=== PATIENT | female | born 1955 | race Caucasian/White ===

== ENCOUNTER 2025-01-30 15:08 | Inpatient (IN) | payer MEDICARE, SELFPAY ==
[2025-01-30] VITALS (13 sets, daily range): BP systolic 122–167; BP diastolic 77–112; PULSE 74–152; RESP 14–18; TEMP 36.4–37.1; O2SAT 92–100; BMI 26.3; BMI 28.1
--- NOTE | 2025-01-30 15:19 | CT_ITS ---
EXAM: CT BRAIN/HEAD; SINUS/FACIAL BONE; SPINE CERVICAL WITHOUT CONTRAST CLINICAL HISTORY: PAIN; FALL COMPARISON: None. TECHNIQUE: Noncontrast CT images of the head, maxillofacial structures, and cervical spine with multiplanar reconstructions. Dose reduction techniques were used including intermediate exposure control (AEC),iterative reconstruction technique, and/or mA and/or KV dose adjustments based on patient's size. FINDINGS: HEAD/FACE: No acute intracranial hemorrhage, extra-axial collection, mass effect or evidence of acute infarct. Mild-moderate generalized brain parenchymal volume loss and chronic microangiopathic changes. No acute skull base, calvarial, or maxillofacial bone fracture. Moderate subcutaneous hematoma and contusional changes in the left facial soft tissues overlying the zygoma. The globes appear intact, with absent [place] ocular lenses. No intraorbital hematoma or emphysema. Well-aerated paranasal sinuses and bilateral mastoid air cells. CERVICAL SPINE: No acute fracture or subluxation. Trace degenerative grade 1 anterolisthesis of C3 on C4. Straightening and slight reversal of the normal cervical lordosis. Moderate multilevel spondylotic changes with varying degrees of disc space narrowing, endplate sclerosis, subchondral cysts and Schmorl's node formations, endplate osteophytosis and uncovertebral spurring, and hypertrophic facet arthropathy. No prevertebral soft tissue swelling. Atherosclerotic vascular calcifications. CT/Spine Cervical without Contras IMPRESSION: 1. No acute intracranial abnormality. 2. Mild-moderate volume loss and chronic microangiopathic changes. 3. No acute maxillofacial fracture. Moderate left facial subcutaneous hematoma /contusional changes overlying the left zygoma. 4. No acute cervical spine fracture or traumatic malalignment. Reading Location: [id number]
--- NOTE | 2025-01-30 15:19 | CT_ITS ---
EXAM: CT BRAIN/HEAD; SINUS/FACIAL BONE; SPINE CERVICAL WITHOUT CONTRAST CLINICAL HISTORY: PAIN; FALL COMPARISON: None. TECHNIQUE: Noncontrast CT images of the head, maxillofacial structures, and cervical spine with multiplanar reconstructions. Dose reduction techniques were used including intermediate exposure control (AEC),iterative reconstruction technique, and/or mA and/or KV dose adjustments based on patient's size. FINDINGS: HEAD/FACE: No acute intracranial hemorrhage, extra-axial collection, mass effect or evidence of acute infarct. Mild-moderate generalized brain parenchymal volume loss and chronic microangiopathic changes. No acute skull base, calvarial, or maxillofacial bone fracture. Moderate subcutaneous hematoma and contusional changes in the left facial soft tissues overlying the zygoma. The globes appear intact, with absent [place] ocular lenses. No intraorbital hematoma or emphysema. Well-aerated paranasal sinuses and bilateral mastoid air cells. CERVICAL SPINE: No acute fracture or subluxation. Trace degenerative grade 1 anterolisthesis of C3 on C4. Straightening and slight reversal of the normal cervical lordosis. Moderate multilevel spondylotic changes with varying degrees of disc space narrowing, endplate sclerosis, subchondral cysts and Schmorl's node formations, endplate osteophytosis and uncovertebral spurring, and hypertrophic facet arthropathy. No prevertebral soft tissue swelling. Atherosclerotic vascular calcifications. CT/Sinus/Facial Bone IMPRESSION: 1. No acute intracranial abnormality. 2. Mild-moderate volume loss and chronic microangiopathic changes. 3. No acute maxillofacial fracture. Moderate left facial subcutaneous hematoma /contusional changes overlying the left zygoma. 4. No acute cervical spine fracture or traumatic malalignment. Reading Location: [id number]
--- NOTE | 2025-01-30 15:19 | CT_ITS ---
EXAM: CT BRAIN/HEAD; SINUS/FACIAL BONE; SPINE CERVICAL WITHOUT CONTRAST CLINICAL HISTORY: PAIN; FALL COMPARISON: None. TECHNIQUE: Noncontrast CT images of the head, maxillofacial structures, and cervical spine with multiplanar reconstructions. Dose reduction techniques were used including intermediate exposure control (AEC),iterative reconstruction technique, and/or mA and/or KV dose adjustments based on patient's size. FINDINGS: HEAD/FACE: No acute intracranial hemorrhage, extra-axial collection, mass effect or evidence of acute infarct. Mild-moderate generalized brain parenchymal volume loss and chronic microangiopathic changes. No acute skull base, calvarial, or maxillofacial bone fracture. Moderate subcutaneous hematoma and contusional changes in the left facial soft tissues overlying the zygoma. The globes appear intact, with absent [place] ocular lenses. No intraorbital hematoma or emphysema. Well-aerated paranasal sinuses and bilateral mastoid air cells. CERVICAL SPINE: No acute fracture or subluxation. Trace degenerative grade 1 anterolisthesis of C3 on C4. Straightening and slight reversal of the normal cervical lordosis. Moderate multilevel spondylotic changes with varying degrees of disc space narrowing, endplate sclerosis, subchondral cysts and Schmorl's node formations, endplate osteophytosis and uncovertebral spurring, and hypertrophic facet arthropathy. No prevertebral soft tissue swelling. Atherosclerotic vascular calcifications. CT/Brain/Head without Contrast IMPRESSION: 1. No acute intracranial abnormality. 2. Mild-moderate volume loss and chronic microangiopathic changes. 3. No acute maxillofacial fracture. Moderate left facial subcutaneous hematoma /contusional changes overlying the left zygoma. 4. No acute cervical spine fracture or traumatic malalignment. Reading Location: [id number]
--- NOTE | 2025-01-30 15:20 | EKG12_ITS ---
Test Reason : ALT LOC Blood Pressure : */* mmHG Vent. Rate : 136 BPM Atrial Rate : * BPM P-R Int : * ms QRS Dur : 98 ms QT Int : 302 ms P-R-T Axes : * 32 250 degrees QTcB Int : 454 ms Atrial fibrillation with rapid ventricular response Incomplete right bundle branch block Nonspecific ST and T wave abnormality Abnormal ECG Confirmed by GEMINI MONROY, ANGIE ([id number]), acquisitions editor TORIBIO SILVA ([id number]) on 02/02/2025 9:17:54 AM Referred By: ER Confirmed By: ANGIE SINGLETARY MD
[2025-01-30] MEDS: 0.9% Normal Saline (1000mL) 1,000 ML 999 ML IV ×2 (15:27→17:21)
--- NOTE | 2025-01-30 15:28 | EDS_ITS ---
HPI <TREVOR Kahn - Last Filed: 01/30/25 20:29> History of Present Illness Chief Complaint: Alt LOC Narrative Narrative: 69-year-old female with past medical history of tachycardia, frequent alcohol use was brought in via EMS with altered mental status. Her is not the best informant. He states she had 2 bottles of wine last night. He went to bed and then was told by the brother who visited this morning that she had signs of facial injury. She is sleepy and seems confused. She could not walk due to right ankle pain. She is not on blood thinners. PFS <TREVOR Kahn - Last Filed: 01/30/25 20:29> [facility] Medical History Alcohol abuse Depression Anxiety Fibromyalgia Hypertension Asthma Home Medications ?Medication ?Instructions ?Recorded ?Last Taken ?Type albuterol sulfate 2.5 mg/3 mL 2.[address] N PRN 01/30/25 Unknown History (0.083 %) solution for nebulization wheezing albuterol sulfate 90 mcg/actuation 1 puff inhalation Q 4H PRN PRN 01/30/25 Unknown History aerosol inhaler asthma amitriptyline 10 mg tablet 10 mg PO TID 01/30/2501/29 History amlodipine 10 mg tablet 10 mg PO DAILY 01/30/2501/16 History atorvastatin 40 mg tablet 40 mg PO DAILY 01/30/2501/16 History baclofen 20 mg tablet 20 mg PO TID spasm 01/30/25 Unknown History diltiazem HCl 240 mg capsule,24 240 mg PO DAILY heart 01/30/25 01/29/25 History hr,extended release (Tiadylt ER) fluticasone 250 mcg-salmeterol 50 1 inh inhalation BID 01/30/25 Unknown History mcg/dose blistr powdr for inhalation (Advair Diskus) sertraline 100 mg tablet 100 mg PO DAILY 01/30/25 History solifenacin 5 mg tablet 5 mg PO DAILY 01/30/2501/29 History sulfamethoxazole 800 1 tab PO BID atb 01/30/25 Un known History mg-trimethoprim 160 mg tablet Allergy/AdvReac Type Severity Reaction Status Date / Time nitrofurantoin (From Allergy Hives Verified 01/30/25 18:20 Macrobid) ipratropium (From Atrovent) AdvReac tachycardia Verified 01/30/25 18:20 Surgical History Hx of appendectomy Hx of knee surgery Hx of foot surgery Social History Smoking Status: Never smoker ROS <TREVOR Kahn - Last Filed: 01/30/25 20:29> ROS ED ROS Narrative Unable to obtain due to altered mental EXAM <TREVOR Kahn - Last Filed: 01/30/25 20:29> Physical Exam Narrative Exam Narrative: CONST: Patient sitting in bed with her eyes closed in no distress. EYES: PERRL. HEAD: Left periorbital and cheek bruising and swelling. NECK: Normal inspection. RESP: No respiratory distress, CTAB. CVS: Tachycardic with regular rhythm, no murmur, no gallop. ABD: Soft and nontender, no guarding or rebound, nondistended. SKIN: Color normal, no rash, warm, dry, intact. EXTREMITIES: Normal appearance, no pedal edema. NEURO: Opens eyes to sternal rub, tells me her name is Alondra and that she is at the hospital, does not answer other questions or follow commands. PSYCH: Normal affect. Const Vital Signs: 01/30/25 15:09 01/30/25 16:00 01/30/25 17:08 Temperature 97.6 F L Temperature Source Axillary Pulse Rate 140 H 152 H 145 H Respiratory Rate 17 14 14 Blood Pressure 135/102 H 148/112 H 153/110 H Blood Pressure Mean 113 124 124 Pulse Ox 97 97 96 Oxygen Delivery Method Room Air Room Air Room Air 01/30/25 17:30 01/30/25 17:45 01/30/25 17:59 Temperature 98 F Temperature Source Pulse Rate 74 85 74 Respiratory Rate 16 14 18 Blood Pressure 140/92 H 153/101 H 153/101 H Blood Pressure Mean 107 118 118 Pulse Ox 98 99 99 Oxygen Delivery Method 01/30/25 18:35 01/30/25 19:00 01/30/25 19:30 Temperature Temperature Source Pulse Rate 86 85 77 Respiratory Rate 16 16 16 Blood Pressure 149/106 H 158/85 H 122/77 H Blood Pressure Mean 120 109 92 Pulse Ox 92 99 95 Oxygen Delivery Method Room Air Room Air Room Air 01/30/25 20:00 01/30/25 20:30 Temperature Temperature Source Pulse Rate 92 82 Respiratory Rate 18 18 Blood Pressure 142/92 H 151/96 H Blood Pressure Mean 108 114 Pulse Ox 94 95 Oxygen Delivery Method Room Air Room Air <Dr. Britney Olivares MD - Last Filed: 01/31/25 00:45> Physical Exam Const Vital Signs: 01/30/25 15:09 01/30/25 16:00 01/30/25 17:08 Temperature 97.6 F L Temperature Source Axillary Pulse Rate 140 H 152 H 145 H Respiratory Rate 17 14 14 Blood Pressure 135/102 H 148/112 H 153/110 H Blood Pressure Mean 113 124 124 Pulse Ox 97 97 96 Oxygen Delivery Method Room Air Room Air Room Air 01/30/25 17:30 01/30/25 17:45 01/30/25 17:59 Temperature 98 F Temperature Source Pulse Rate 74 85 74 Respiratory Rate 16 14 18 Blood Pressure 140/92 H 153/101 H 153/101 H Blood Pressure Mean 107 118 118 Pulse Ox 98 99 99 Oxygen Delivery Method 01/30/25 18:35 01/30/25 19:00 01/30/25 19:30 Temperature Temperature Source Pulse Rate 86 85 77 Respiratory Rate 16 16 16 Blood Pressure 149/106 H 158/85 H 122/77 H Blood Pressure Mean 120 109 92 Pulse Ox 92 99 95 Oxygen Delivery Method Room Air Room Air Room Air 01/30/25 20:00 01/30/25 20:30 Temperature Temperature Source Pulse Rate 92 82 Respiratory Rate 18 18 Blood Pressure 142/92 H 151/96 H Blood Pressure Mean 108 114 Pulse Ox 94 95 Oxygen Delivery Method Room Air Room Air MDM <TREVOR Kahn - Last Filed: 01/30/25 20:29> [facility] MDM Narrative Medical decision making narrative: Wide differential includes intracranial hemorrhage, alcohol or drug ingestion, electrolyte derangement, UTI 69-year-old female presents with altered mental status. Her provides history. They are from [place] here visiting family. She reportedly drinks alcohol frequently and had 2 bottles of wine last night and this morning they saw she had signs of facial trauma and she was confused. She is snoring in bed with her eyes closed and responds to a deep sternal rub. She tells me her name and location is the hospital and then goes back to sleep. BP 135/102, HR 140, 97% on room air, RR 17, afebrile. The left side of the face has a traumatic hematoma. There are no other injuries noted except for right ankle swelling and bruising. She is tachycardic without murmur and has clear lung sounds. Abdomen soft and nontender. Distal pulses intact. CT scans of the head/neck/facial bones are negative for acute findings. CBC is unremarkable. Sodium is 147, glucose 125, CO2 24, gap 17. Renal function is normal. Alcohol level is negative. Urine tox is positive for THC. EKG shows atrial fibrillation with RVR at 136 bpm and troponin is normal. Her states she has had SVT in the past but no known A-fib and she is on blood thinners. After IV fluids her heart rate is now in the 70s. Her urinalysis is negative. VBG shows normal pH at 7.444 and CO2 of 41.4. Chest x-ray and pelvis show no acute findings. There is a right spiral distal fibula fracture so I placed a short leg posterior and stir rup splint and she is neurovascularly intact after application. The source of her altered mental status is not clear. The nurse came in and reported she had vomited so I ordered Zofran and a CT scan of her abdomen/pelvis which returned with no acute findings. I consulted the hospitalist for admission for altered mental status of unknown etiology. After the hospitalist evaluated the mentioned that the patient had taken baclofen due to her right ankle pain so this could be contributing. She has been protecting her airway, stable on room air and does not require intervention. She was admitted in stable condition. History & Record Review Discussion w/independent historian: Significant other Additional record(s) reviewed:: No prior records Lab Data Attestation: I reviewed the patient's lab results. Labs: Laboratory Results - last 24 hr 01/30/25 01/30/25 01/30/25 15:23 15:39 16:35 WBC 10.3 RBC 4.40 Hgb 13.7 Hct 41.3 MCV 93.9 MCH 31.1 MCHC 33.2 RDW Std Deviation 42.6 RDW Coeff of Joaquín 12.2 Plt Count 276 MPV 10.2 Immature Gran % (Auto) 0.300 Neut % (Auto) 75.7 H Lymph % (Auto) 16.8 L [place] % (Auto) 6.4 Eos % (Auto) 0.3 Baso % (Auto) 0.5 Absolute Neuts (auto) 7.8 H Absolute Lymphs (auto) 1.72 Nucleated RBC % 0 Sodium 147 H Potassium 3.7 Chloride 106 Carbon Dioxide 24.0 Anion Gap 17 H BUN 14 Creatinine 0.56 L Estim Creat Clear Calc 75.17 Est GFR (MDRD) Non-Af 100 BUN/Creatinine Ratio 23.9 H Glucose 125 H Calcium 10.3 Total Bilirubin 0.32 AST 28 ALT 27 Alkaline Phosphatase 68 Troponin T High Sens Troponin T Hi Sens 2 Hr Troponin T Hi Sens 4Hr Total Protein 8.1 Albumin 5.2 H Globulin 2.9 Albumin/Globulin Ratio 1.8 Urine Color Yellow Urine Clarity Clear Urine pH 6.5 Ur Specific Sherman 1.015 Urine Protein 15 H Urine Glucose (UA) Normal Urine Ketones Negative Urine Occult Blood Negative Urine Nitrite Negative Urine Bilirubin Negative Urine Urobilinogen Normal Ur Leukocyte Esterase Negative Urine RBC 0 SEEN Urine WBC 0 SEEN Ur Squamous Epith Cells 0 SEEN Urine Bacteria 0 SEEN Urine Mucus 0 SEEN Urine Opiates Screen NEGATIVE U Buprenorphine Qual NEGATIVE Ur Oxycodone Screen NEGATIVE Urine Methadone Screen NEGATIVE Urine Fentanyl Screen NEGATIVE Ur Barbiturates Screen NEGATIVE Ur Phencyclidine Scrn NEGATIVE Ur Amphetamines Screen NEGATIVE U Benzodiazepines Scrn NEGATIVE Urine Cocaine Screen NEGATIVE U Cannabinoids Screen PRESUMPTIVE POSITIVE Ethyl Alcohol < 10.1 POC Glucose 118 H 01/30/25 01/30/25 01/30/25 16:43 17:55 19:54 WBC RBC Hgb Hct MCV MCH MCHC RDW Std Deviation RDW Coeff of Joaquín Plt Count MPV Immature Gran % (Auto) Neut % (Auto) Lymph % (Auto) [place] % (Auto) Eos % (Auto) Baso % (Auto) Absolute Neuts (auto) Absolute Lymphs (auto) Nucleated RBC % Sodium Potassium Chloride Carbon Dioxide Anion Gap BUN Creatinine Estim Creat Clear Calc Est GFR (MDRD) Non-Af BUN/Creatinine Ratio Glucose Calcium Total Bilirubin AST ALT Alkaline Phosphatase Troponin T High Sens < 6 Troponin T Hi Sens 2 Hr 8 Troponin T Hi Sens 4Hr 11 Total Protein Albumin Globulin Albumin/Globulin Ratio Urine Color Urine Clarity Urine pH Ur Specific Sherman Urine Protein Urine Glucose (UA) Urine Ketones Urine Occult Blood Urine Nitrite Urine Bilirubin Urine Urobilinogen Ur Leukocyte Esterase Urine RBC Urine WBC Ur Squamous Epith Cells Urine Bacteria Urine Mucus Urine Opiates Screen U Buprenorphine Qual Ur Oxycodone Screen Urine Methadone Screen Urine Fentanyl Screen Ur Barbiturates Screen Ur Phencyclidine Scrn Ur Amphetamines Screen U Benzodiazepines Scrn Urine Cocaine Screen U Cannabinoids Screen Ethyl Alcohol POC Glucose ABG Data ABG results: ABG 01/30/25 15:44 Specimen Type ART Sample Site L Radial pH 7.44 Bicarbonate Actual 28.3 H Total CO2 30 Base Excess 4 H O2 Saturation 97 O2 % 21.0 ABG pCO2 41.4 ABG pO2 86 Dc Test Positive O2 Delivery Device Room Air Vent Mode Not entered Radiography Diagnostic Testing: Clinical Impression(s) from Imaging Studies Brain CT 01/30/25 15:19 IMPRESSION: 1. No acute intracranial abnormality. 2. Mild-moderate volume loss and chronic microangiopathic changes. 3. No acute maxillofacial fracture. Moderate left facial subcutaneous hematoma/contusional changes overlying the left zygoma. 4. No acute cervical spine fracture or traumatic malalignment. Reading Location: [facility] Cervical Spine CT 01/30/25 15:19 IMPRESSION: 1. No acute intracranial abnormality. 2. Mild-moderate volume loss and chronic microangiopathic changes. 3. No acute maxillofacial fracture. Moderate left facial subcutaneous hematoma/contusional changes overlying the left zygoma. 4. No acute cervical spine fracture or traumatic malalignment. Reading Location: [facility] Facial/Sinus 01/30/25 15:19 IMPRESSION: 1. No acute intracranial abnormality. 2. Mild-moderate volume loss and chronic microangiopathic changes. 3. No acute maxillofacial fracture. Moderate left facial subcutaneous hematoma/contusional changes overlying the left zygoma. 4. No acute cervical spine fracture or traumatic malalignment. Reading Location: [facility] Ankle X-Ray 01/30/25 16:00 IMPRESSION: Spiral mildly displaced fracture deformity of distal fibular metadiaphysis. Reading Location: [facility] Chest X-Ray 01/30/25 16:00 IMPRESSION: No acute cardiopulmonary abnormalities are visualized. Reading Location: [facility] Pelvis X-Ray 01/30/25 16:00 IMPRESSION: Limited evaluation of left hip joint due to patient rotation. No definite evidence of displaced fracture deformity. If there is high clinical suspicion for fracture deformity, cross-sectional imaging can be obtained. Reading Location: [facility] Abdomen/Pelvis CT 01/30/25 18:30 IMPRESSION: 1. No acute findings in the abdomen or pelvis. 2. Mild diffuse hepatic steatosis. 3. Calcified uterine fibroid. Reading Location: [facility] ED attending interpretation of 1 view chest x-ray shows normal heart size, no acute infiltrate. ED attending interpretation, 1 view pelvis shows fracture or dislocation. ED attending interpretation of the right ankle shows a Bianchi B distal fibula fracture. EKG Initial EKG: Attestation: I personally reviewed and interpreted this EKG as follows: Interpretation: Atrial Fibrillation Comments: A-fib RVR at 136 bpm Incomplete right bundle branch block No STEMI Prior EKG tracings: not available for review <Dr. Britney Olivares MD - Last Filed: 01/31/25 00:45> [facility] MDM Narrative Medical decision making narrative: Wide differential includes intracranial hemorrhage, alcohol or drug ingestion, electrolyte derangement, UTI 69-year-old female presents with altered mental status. Her provides history. They are from [place] here visiting family. She reportedly drinks alcohol frequently and had 2 bottles of wine last night and this morning they saw she had signs of facial trauma and she was confused. She is snoring in bed with her eyes closed and responds to a deep sternal rub. She tells me her name and location is the hospital and then goes back to sleep. BP 135/102, HR 140, 97% on room air, RR 17, afebrile. The left side of the face has a traumatic hematoma. There are no other injuries noted except for right ankle swelling and bruising. She is tachycardic without murmur and has clear lung sounds. Abdomen soft and nontender. Distal pulses intact. CT scans of the head/neck/facial bones are negative for acute findings. CBC is unremarkable. Sodium is 147, glucose 125, CO2 24, gap 17. Renal function is normal. Alcohol level is negative. Urine tox is positive for THC. EKG shows atrial fibrillation with RVR at 136 bpm and troponin is normal. Her states she has had SVT in the past but no known A-fib and she is on blood thinners. After IV fluids her heart rate is now in the 70s. Her urinalysis is negative. VBG shows normal pH at 7.444 and CO2 of 41.4. Chest x-ray and pelvis show no acute findings. There is a right spiral distal fibula fracture so I placed a short leg posterior and stirrup splint and she is neurovascularly intact after application. The source of her altered mental status is not clear. The nurse came in and reported she had vomited so I ordered Zofran and a CT scan of her abdomen/pelvis which returned with no acute findings. I consulted the hospitalist for admission for altered mental status of unknown etiology. After the hospitalist evaluated the mentioned that the patient had taken baclofen due to her right ankle pain so this could be contributing. She has been protecting her airway, stable on room air and does not require intervention. She was admitted in stable condition. Patient seen and evaluated with KAYLYNN. I personally interviewed and examined the patient. I was involved in all aspects of patient's orders, interpretation of results, and treatment. Agree with the above. When I evaluated the patient she was difficult to arouse. I was concerned about her protecting her airway. While prepping to intubate, urinary catheter was placed by nursing staff and the patient woke. She was alert and oriented x 2. She was able to follow my commands by squeezing my hands and giving thumbs up. [id number] glucose was ordered and was within normal limits. ABG ordered and shows no significant abnormalities. Taken to CT and I do not see any intracranial bleeds on my read. Please see above however overall her workup was negative. Heart rate improved after fluid bolus. She was found to have a distal fibular fracture Bianchi type B, placed in a short leg posterior and stirrup splint. She was neurovascularly intact after splint placement by KAYLYNN. Patient will require admission for altered mental status. Admitted to the hospitalist for further management. Clinical impression Altered mental status A-fib with RVR Distal fibular fracture Lab Data Labs: Laboratory Results - last 24 hr 01/30/25 01/30/25 01/30/25 15:23 15:39 16:35 WBC 10.3 RBC 4.40 Hgb 13.7 Hct 41.3 MCV 93.9 MCH 31.1 MCHC 33.2 RDW Std Deviation 42.6 RDW Coeff of Joaquín 12.2 Plt Count 276 MPV 10.2 Immature Gran % (Auto) 0.300 Neut % (Auto) 75.7 H Lymph % (Auto) 16.8 L [place] % (Auto) 6.4 Eos % (Auto) 0.3 Baso % (Auto) 0.5 Absolute Neuts (auto) 7.8 H Absolute Lymphs (auto) 1.72 Nucleated RBC % 0 Sodium 147 H Potassium 3.7 Chloride 106 Carbon Dioxide 24.0 Anion Gap 17 H BUN 14 Creatinine 0.56 L Estim Creat Clear Calc 75.17 Est GFR (MDRD) Non-Af 100 BUN/Creatinine Ratio 23.9 H Glucose 125 H Calcium 10.3 Total Bilirubin 0.32 AST 28 ALT 27 Alkaline Phosphatase 68 Troponin T High Sens Troponin T Hi Sens 2 Hr Troponin T Hi Sens 4Hr Total Protein 8.1 Albumin 5.2 H Globulin 2.9 Albumin/Globulin Ratio 1.8 Urine Color Yellow Urine Clarity Clear Urine pH 6.5 Ur Specific Sherman 1.015 Urine Protein 15 H Urine Glucose (UA) Normal Urine Ketones Negative Urine Occult Blood Negative Urine Nitrite Negative Urine Bilirubin Negative Urine Urobilinogen Normal Ur Leukocyte Esterase Negative Urine RBC 0 SEEN Urine WBC 0 SEEN Ur Squamous Epith Cells 0 SEEN Urine Bacteria 0 SEEN Urine Mucus 0 SEEN Urine Opiates Screen NEGATIVE U Buprenorphine Qual NEGATIVE Ur Oxycodone Screen NEGATIVE Urine Methadone Screen NEGATIVE Urine Fentanyl Screen NEGATIVE Ur Barbiturates Screen NEGATIVE Ur Phencyclidine Scrn NEGATIVE Ur Amphetamines Screen NEGATIVE U Benzodiazepines Scrn NEGATIVE Urine Cocaine Screen NEGATIVE U Cannabinoids Screen PRESUMPTIVE POSITIVE Ethyl Alcohol < 10.1 POC Glucose 118 H 01/30/25 01/30/25 01/30/25 16:43 17:55 19:54 WBC RBC Hgb Hct MCV MCH MCHC RDW Std Deviation RDW Coeff of Joaquín Plt Count MPV Immature Gran % (Auto) Neut % (Auto) Lymph % (Auto) [place] % (Auto) Eos % (Auto) Baso % (Auto) Absolute Neuts (auto) Absolute Lymphs (auto) Nucleated RBC % Sodium Potassium Chloride Carbon Dioxide Anion Gap BUN Creatinine Estim Creat Clear Calc Est GFR (MDRD) Non-Af BUN/Creatinine Ratio Glucose Calcium Total Bilirubin AST ALT Alkaline Phosphatase Troponin T High Sens < 6 Troponin T Hi Sens 2 Hr 8 Troponin T Hi Sens 4Hr 11 Total Protein Albumin Globulin Albumin/Globulin Ratio Urine Color Urine Clarity Urine pH Ur Specific Sherman Urine Protein Urine Glucose (UA) Urine Ketones Urine Occult Blood Urine Nitrite Urine Bilirubin Urine Urobilinogen Ur Leukocyte Esterase Urine RBC Urine WBC Ur Squamous Epith Cells Urine Bacteria Urine Mucus Urine Opiates Screen U Buprenorphine Qual Ur Oxycodone Screen Urine Methadone Screen Urine Fentanyl Screen Ur Barbiturates Screen Ur Phencyclidine Scrn Ur Amphetamines Screen U Benzodiazepines Scrn Urine Cocaine Screen U Cannabinoids Screen Ethyl Alcohol POC Glucose ABG Data ABG results: ABG 01/30/25 15:44 Specimen Type ART Sample Site L Radial pH 7.44 Bicarbonate Actual 28.3 H Total CO2 30 Base Excess 4 H O2 Saturation 97 O2 % 21.0 ABG pCO2 41.4 ABG pO2 86 Dc Test Positive O2 Delivery Device Room Air Vent Mode Not entered Radiography Diagnostic Testing: Clinical Impression(s) from Imaging Studies Brain CT 01/30/25 15:19 IMPRESSION: 1. No acute intracranial abnormality. 2. Mild-moderate volume loss and chronic microangiopathic changes. 3. No acute maxillofacial fracture. Moderate left facial subcutaneous hematoma/contusional changes overlying the left zygoma. 4. No acute cervical spine fracture or traumatic malalignment. Reading Location: [id number] Cervical Spine CT 01/30/25 15:19 IMPRESSION: 1. No acute intracranial abnormality. 2. Mild-moderate volume loss and chronic microangiopathic changes. 3. No acute maxillofacial fracture. Moderate left facial subcutaneous hematoma/contusional changes overlying the left zygoma. 4. No acute cervical spine fracture or traumatic malalignment. Reading Location: [facility] Facial/Sinus 01/30/25 15:19 IMPRESSION: 1. No acute intracranial abnormality. 2. Mild-moderate volume loss and chronic microangiopathic changes. 3. No acute maxillofacial fracture. Moderate left facial subcutaneous hematoma /contusional changes overlying the left zygoma. 4. No acute cervical spine fracture or traumatic malalignment. Reading Location: [facility] Ankle X-Ray 01/30/25 16:00 IMPRESSION: Spiral mildly displaced fracture deformity of distal fibular metadiaphysis. Reading Location: [facility] Chest X-Ray 01/30/25 16:00 IMPRESSION: No acute cardiopulmonary abnormalities are visualized. Reading Location: [facility] Pelvis X-Ray 01/30/25 16:00 IMPRESSION: Limited evaluation of left hip joint due to patient rotation. No definite evidence of displaced fracture deformity. If there is high clinical suspicion for fracture deformity, cross-sectional imaging can be obtained. Reading Location: [facility] Abdomen/Pelvis CT 01/30/25 18:30 IMPRESSION: 1. No acute findings in the abdomen or pelvis. 2. Mild diffuse hepatic steatosis. 3. Calcified uterine fibroid. Reading [facility] Discharge Plan Triage Chief Complaint: Alt LOC ED Midlevel Provider: Barb Bah ED Provider: Britney Olivares Dx/Rx/DC Orders Clinical Impression: Altered mental status, Atrial fibrillation with RVR, Facial hematoma, Alcohol abuse, Closed fracture of right distal fibula Primary Care Provider: Care Physician,No Primary Disposition Disposition: Home, Self Care Discharge Date/Time: 01/30/25 20:50
[2025-01-30 15:37] LABS: Hematocrit 41.3 % (37-47); Hemoglobin 13.7 g/dL (12.0-15.0); Immature Granulocytes Count 0.030 X10^3/uL (0.0-0.0); Mean Corp Hgb Conc 33.2 g/dL (32-36); Mean Corpuscular Volume 93.9 fL (81-99); Mean Platelet Vol. 10.2 fl (6.2-12.0); NRBC Flagged by Analyzer 0 % (0-5); Platelet Count 276 K/mm3 (150-450); RBC Distribution Width CV 12.2 % (11.6-14.6); RBC Distribution Width SD 42.6 fl (35.1-43.9); Red Blood Count 4.40 M/mm3 (4.2-5.4); White Blood Count 10.3 K/mm3 (4.4-11.0)
[2025-01-30 15:50] LABS: Allen Test Positive; Base Excess 4 mmol/L (-2 to +2); FI02 21.0; PO2 86 mmHG (75-100); SITE L Radial; SO2 97 % (95-99)
--- NOTE | 2025-01-30 16:00 | RAD_ITS ---
PROCEDURE: CHEST 1 VIEW (PORTABLE) 01/30/2025 REASON FOR EXAM: FALL TECHNIQUE: Frontal view of the chest. COMPARISON: None FINDINGS: Heart: Heart size is moderately enlarged. Lungs: Bibasilar atelectasis. Bones: Degenerative changes are identified within the thoracic spine. Other: None RAD/Chest 1 View (Portable) IMPRESSION: No acute cardiopulmonary abnormalities are visualized. Reading Location: [id number]
--- NOTE | 2025-01-30 16:00 | RAD_ITS ---
PROCEDURE: ANKLE MIN 3 VIEWS 01/30/2025 REASON FOR EXAM: PAIN TECHNIQUE: ANKLE MIN 3 VIEWS Laterality: FINDINGS: Bones: Spiral mildly displaced fracture deformity of distal fibula. Calcaneal spur is visualized. Joints: Degenerative changes of visualized ankle joint. Soft tissues: Soft tissue swelling overlying fracture deformity. RAD/Ankle min 3 Views IMPRESSION: Spiral mildly displaced fracture deformity of distal fibular metadiaphysis. Reading Location: [id number]
--- NOTE | 2025-01-30 16:00 | RAD_ITS ---
PROCEDURE: PELVIS 1 OR 2 VIEWS 01/30/2025 REASON FOR EXAM: FALL TECHNIQUE: PELVIS 1 OR 2 VIEWS COMPARISON: None FINDINGS: Bones: Unremarkable no displaced acute fracture deformity. Joints: Limited evaluation of left hip joint due to patient rotation. No fracture deformity of right hip joint. soft tissues: Soft tissue are unremarkable. Other: Moderate stool burden. RAD/Pelvis 1 or 2 Views IMPRESSION: Limited evaluation of left hip joint due to patient rotation. No definite evid ence of displaced fracture deformity. If there is high clinical suspicion for fracture deformity, cross-sectional raj ging can be obtained. Reading Location: [id number]
[2025-01-30 16:04] LABS: AST(SGOT) 28 U/L (<=31); Alanine Aminotransfer ALT/SGPT 27 U/L (<=34); Albumin, Serum 5.2 g/dL (3.4-4.8); Alcohol, Blood (Medical)-Serum < 10.1 mg/dL (<=10.0); Alkaline Phosphatase 68 U/L (35-104); Anion Gap 17 (5-15); BUN 14 mg/dL (4-19); BUN/Creat Ratio 23.9 RATIO (10-20); Calcium,Total 10.3 mg/dL (7.6-11.0); Carbon Dioxide 24.0 mmol/L (21.0-32.0); Chloride 106 mmol/L (98-108); Estimated Creatinine Clearance 75.17 ml/min (50-250); Globulin 2.9 g/dL (2.2-4.2); Glucose 125 mg/dL (70-99); Potassium 3.7 mmol/L (3.3-5.1)
[2025-01-30 16:45] LABS: Mucous, Urine 0 SEEN /hpf (<or=2+); Red Blood Cells-Urine 0 SEEN /hpf (0-5); Squamous Epithelial Cells - UA 0 SEEN /hpf (5-10)
[2025-01-30 17:13] LABS: Barbiturate Urine NEGATIVE (< 200 ng/mL); Benzodiazepine Urine NEGATIVE (< 200 ng/mL); PCP Urine NEGATIVE (< 25 ng/mL); THC Urine PRESUMPTIVE POSITIVE (< 50 ng/mL)
[2025-01-30 17:16] LABS: Color, Urine Yellow (Yellow); Glucose, Dipstick Normal (Normal); Ketone-Dipstick Negative (Negative); Leukocyte Esterase-Dipstick Negative /ul (Negative); Nitrite-Dipstick Negative (Negative); Occult Blood-Urine Negative /ul (Negative); Protein-Dipstick 15 mg/dl (Negative); Specific Gravity, Urine 1.015 (1.002-1.030); Urine Bilirubin Dipstick Negative (Negative)
[2025-01-30 17:24] LABS: Troponin T High Sensitivity < 6 ng/L (<=14)
--- NOTE | 2025-01-30 17:40 | CM.ED ---
Social work SW entered patient's room, introducing self and role at [facility]. Patient's , Shakeel, was bedside. Patient was sitting up in bed and was awake, but confused. Shakeel stated patient had been sleeping much of the day, but Shakeel stated patient was repeating I'm sorry since being awake. Shakeel stated patient was unaware of where patient was or what had occurred last evening. Patient is from [place]; per Shakeel, patient and Shakeel drove in yesterday to visit with family. Sapphire Mar, TOP TAPER MACHINE, FUNERAL HOME DIRECTOR
--- NOTE | 2025-01-30 18:30 | CT_ITS ---
PROCEDURE: ABDOMEN/PELVIS W IV CONT ONLY 01/30/2025 REASON FOR EXAM: VOMITING, CONFUSION TECHNIQUE: ABDOMEN/PELVIS W IV CONT ONLY Coronal and Sagittal reconstruction series were provided. CONTRAST: 100 cc of Isovue 370 intravenous contrast. One or more dose reduction techniques were used (e.g., Automated exposure control, adjustment of the mA and/or kV according to patient size, use of iterative reconstruction technique. COMPARISON: None available. FINDINGS: Lung bases: Unremarkable. Liver: Normal-size. Mild diffuse hepatic steatosis. No obvious hepatic mass. Gallbladder: Unremarkable. No biliary ductal dilatation. Spleen: Normal size. Pancreas: Normal size without evidence of mass surrounding inflammation or ductal dilation. Adrenals: Unremarkable Kidneys: Normal renal sizes. No hydronephrosis. Bladder: Collapsed around a Prater catheter. Reproductive Organs: Normal uterine size and contour. Ovaries are unremarkable. Calcified uterine fibroid. Bowel: No bowel obstruction. Appendix: Normal. Lymph nodes: Unremarkable. Vasculature: The abdominal aorta and IVC are normal. Peritoneum / Retroperitoneum: No free fluid or air. Bones: Degenerative changes of the spine. No acute fractures. CT/Abdomen/Pelvis W IV Cont ONLY IMPRESSION: 1. No acute findings in the abdomen or pelvis. 2. Mild diffuse hepatic steatosis. 3. Calcified uterine fibroid. Reading Location: [facility]
[2025-01-30 18:32] LABS: Troponin T High Sens 2 HR 8 ng/L (<=14)
--- NOTE | 2025-01-30 20:13 | HP.PCM.HOS_ITS ---
HPI - General General Date of Admission: 01/30/25 Date of Service: 01/30/25 Chief Complaint: Altered LOC HPI Narrative AURORA GARCIA, is [id number] female with a history of chronic back pain, fibromyalgia, hypertension, asthma, frequent alcohol use presented to [facility] ED 01/30/2025 due to altered level of consciousness. Reportedly had 2 bottles of wine last night, went to bed but was woken up because patient's brother found her sitting on the step with signs of a facial injury and right ankle pain, patient was helped to bed and then when patient's woke up this morning he tried to wake her up but she was minimally interactive prompting them to bring her to the ED. In the ED temp 97.6, heart rate initially 1 40-1 50s with a blood pressure of 135/102, respiratory rate 17 and pulse ox 97% on room air. CBC with white blood cell count 10.3 and hemoglobin 13.7, ABG with a bicarb of 28.3 otherwise within normal limits, glucose 118. Sodium 147 with a normal bicarb on BMP and reported gap of 17, BUN of 14 and a creatinine of 0.56 liver function normal. UDS positive for cannabinoids, alcohol level negative. UA not suggestive of infection. Troponin within normal limits. Patient had almendarez scans due to concern for her continued decreased level of consciousness. CT brain/cervical spine/facial sinus with moderate left facial subcutaneous hematoma but no acute intracranial process or cervical spine malalignment. Chest x-ray and hip and pelvis x-ray no acute process. Ankle x-ray did show spiral mildly displaced fracture deformity of distal fibular metadiaphysis. This was placed in a splint in the ED. Patient was able to be aroused with sternal rub but would ultimately go back to sleep. Given she was still not back to her baseline hospitalist contacted for admission. Evaluated patient at bedside, history obtained most entirely from . He reports that they were living in [place] and moved to [place] at the beginning of January, yesterday they drove from [place] to [place] 7 and half hours to stay with her brother. Patient was drinking before went to bed and he reports after he went to bed she drank a whole second bottle of wine. Reportedly they are trying to get healthy so she had not drank in over a week before that and aside from that 1 day had not drank for at least 2 more weeks. He does suspect that she had used an edible sometime yesterday. He also notes that he was woken up because she fell but he was able to get her to bed, he is not sure if she took any of the baclofen that she had. This a.m. she was difficult to arouse which is why she is in the ED. He feels like she is progressively becoming better as she has been in the ED and that while she has been mostly asleep when she is awake she is more alert and is answering questions better but does not remember coming to [place] or where she is right now. Is able to identify her . Patient initially would not wake up on my exam however with sternal rub she then was wide-awake, she was not sure where she was or why she was there but knew who her was, she was able to follow commands and she denied presently having any pain, nausea, chest pain or shortness of breath, no headache or changes in vision. She denied any other new or acute complaints. [facility] Medical History Alcohol abuse Anxiety Asthma Depression Fibromyalgia Hypertension Home Medications ?Medication ?Instructions ?Recorded ?Last Taken ?Type albuterol sulfate 2.5 mg/3 mL 2.5 mg inhalation Q4H RI N PRN 01/30/25 Unknown History (0.083 %) solution for nebulization wheezing albuterol sulfate 90 mcg/actuation 1 puff inhalation Q 4H PRN PRN 01/30/25 Unknown History aerosol inhaler asthma amitriptyline 10 mg tablet 10 mg PO TID 01/30/2501/29 History amlodipine 10 mg tablet 10 mg PO DAILY 01/30/2501/16 History atorvastatin 40 mg tablet 40 mg PO DAILY 01/30/2501/16 History baclofen 20 mg tablet 20 mg PO TID spasm 01/30/25 Unknown History diltiazem HCl 240 mg capsule,24 240 mg PO DAILY heart 01/30/25 01/29/25 History hr,extended release (Tiadylt ER) fluticasone 250 mcg-salmeterol 50 1 inh inhalation BID 01/30/25 Unknown History mcg/dose blistr powdr for inhalation (Advair Diskus) sertraline 100 mg tablet 100 mg PO DAILY 01/30/25 History solifenacin 5 mg tablet 5 mg PO DAILY 01/30/2501/29 History sulfamethoxazole 800 1 tab PO BID atb 01/30/25 Un known History mg-trimethoprim 160 mg tablet Allergy/AdvReac Type Severity Reaction Status Date / Time nitrofurantoin (From Allergy Hives Verified 01/30/25 18:20 Macrobid) ipratropium (From Atrovent) AdvReac tachycardia Verified 01/30/25 18:20 Surgical History Hx of appendectomy Hx of foot surgery Hx of knee surgery Social History Smoking Status: Never smoker ROS ROS Narrative Unable to obtain full ROS given mental status overall however presently denied any headache, changes in vision, no nausea or abdominal pain, no chest pain or shortness of breath, denied any pain or other acute complaints Vital Signs Vital Signs Vital Signs: 01/30/25 15:09 01/30/25 16:00 01/30/25 17:08 Temperature 97.6 F L Temperature Source Axillary Pulse Rate 140 H 152 H 145 H Respiratory Rate 17 14 14 Blood Pressure 135/102 H 148/112 H 153/110 H Blood Pressure Mean 113 124 124 Pulse Ox 97 97 96 Oxygen Delivery Method Room Air Room Air Room Air 01/30/25 17:30 01/30/25 17:45 01/30/25 17:59 Temperature 98 F Temperature Source Pulse Rate 74 85 74 Respiratory Rate 16 14 18 Blood Pressure 140/92 H 153/101 H 153/101 H Blood Pressure Mean 107 118 118 Pulse Ox 98 99 99 Oxygen Delivery Method 01/30/25 18:35 01/30/25 19:00 01/30/25 19:30 Temperature Temperature Source Pulse Rate 86 85 77 Respiratory Rate 16 16 16 Blood Pressure 149/106 H 158/85 H 122/77 H Blood Pressure Mean 120 109 92 Pulse Ox 92 99 95 Oxygen Delivery Method Room Air Room Air Room Air Weight Weight: 78.6 kg Body Mass Index (BMI) 26.3 Physical Exam Narrative General: Initially sleeping very soundly, required sternal rub but then was awake and alert though confused HEENT: Does have bruising on left side of face, normocephalic Eyes: Anicteric, normal conjunctiva, extraocular movements intact, pupils equal Neck: Supple Respiratory: Clear to auscultation bilaterally, normal respiratory effort Cardiovascular: Regular rate and rhythm GI: Soft, nontender, nondistended Extremities: No edema Musculoskeletal: Strength 5 out of 5 in right upper extremity, 5 out of 5 left upper extremity Neuro: No overt focal neurological deficits, cranial nerves II through XII intact Skin: No rashes appreciated, has bruising over left side of face Psych: Once awake attempted to be cooperative but seems startled and confused Results Lab / Micro Data 01/30/25 15:23 01/30/25 15:23 Labs: Laboratory Results - last 24 hr 01/30/25 15:23: WBC 10.3, RBC 4.40, Hgb 13.7, Hct 41.3, MCV 93.9, MCH 31.1, MCHC 33.2, RDW Std Deviation 42.6, RDW Coeff of Joaquín 12.2, Plt Count 276, MPV 10.2, Immature Gran % (Auto) 0.300, Neut % (Auto) 75.7 H, Lymph % (Auto) 16.8 L, [place] % (Auto) 6.4, Eos % (Auto) 0.3, Baso % (Auto) 0.5, Absolute Neuts (auto) 7.8 H, Absolute Lymphs (auto) 1.72, Nucleated RBC % 0, Sodium 147 H, Potassium 3.7, Chloride 106, Carbon Dioxide 24.0, Anion Gap 17 H, BUN 14, Creatinine 0.56 L, Estim Creat Clear Calc 75.17, Est GFR (MDRD) Non-Af 100, BUN/Creatinine Ratio 23.9 H, Glucose 125 H, Calcium 10.3, Total Bilirubin 0.32, AST 28, ALT 27, Alkaline Phosphatase 68, Total Protein 8.1, Albumin 5.2 H, Globulin 2.9, Albumin/Globulin Ratio 1.8, Ethyl Alcohol < 10.1 01/30/25 15:39: POC Glucose 118 H 01/30/25 16:35: Urine Color Yellow, Urine Clarity Clear, Urine pH 6.5, Ur Specific Sig[place] 1.015, Urine Protein 15 H, Urine Glucose (UA) Normal, Urine Ketones Negative, Urine Occult Blood Negative, Urine Nitrite Negative, Urine Bilirubin Negative, Urine Urobilinogen Normal, Ur Leukocyte Esterase Negative, Urine RBC 0 SEEN, Urine WBC 0 SEEN, Ur Squamous Epith Cells 0 SEEN, Urine Bacteria 0 SEEN, Urine Mucus 0 SEEN, Urine Opiates Screen NEGATIVE, U Buprenorphine Qual NEGATIVE, Ur Oxycodone Screen NEGATIVE, Urine Methadone Screen NEGATIVE, Urine Fentanyl Screen NEGATIVE, Ur Barbiturates Screen NEGATIVE, Ur Phencyclidine Scrn NEGATIVE, Ur Amphetamines Screen NEGATIVE, U Benzodiazepines Scrn NEGATIVE, Urine Cocaine Screen NEGATIVE, U Cannabinoids Screen PRESUMPTIVE POSITIVE 01/30/25 16:43: Troponin T High Sens < 6 01/30/25 17:55: Troponin T Hi Sens 2 Hr 8 ABG Data ABG results: ABG 01/30/25 15:44 Specimen Type ART Sample Site L Radial pH 7.44 Bicarbonate Actual 28.3 H Total CO2 30 Base Excess 4 H O2 Saturation 97 O2 % 21.0 ABG pCO2 41.4 ABG pO2 86 Dc Test Positive O2 Delivery Device Room Air Vent Mode Not entered Imaging Radiology Impression Brain CT 01/30/25 15:19 IMPRESSION: 1. No acute intracranial abnormality. 2. Mild-moderate volume loss and chronic microangiopathic changes. 3. No acute maxillofacial fracture. Moderate left facial subcutaneous hematoma/contusional changes overlying the left zygoma. 4. No acute cervical spine fracture or traumatic malalignment. Reading Location: [facility] Cervical Spine CT 01/30/25 15:19 IMPRESSION: 1. No acute intracranial abnormality. 2. Mild-moderate volume loss and chronic microangiopathic changes. 3. No acute maxillofacial fracture. Moderate left facial subcutaneous hematoma/contusional changes overlying the left zygoma. 4. No acute cervical spine fracture or traumatic malalignment. Reading Location: [facility] Facial/Sinus 01/30/25 15:19 IMPRESSION: 1. No acute intracranial abnormality. 2. Mild-moderate volume loss and chronic microangiopathic changes. 3. No acute maxillofacial fracture. Moderate left facial subcutaneous hematoma/contusional changes overlying the left zygoma. 4. No acute cervical spine fracture or traumatic malalignment. Reading Location: [facility] Ankle X-Ray 01/30/25 16:00 IMPRESSION: Spiral mildly displaced fracture deformity of distal fibular metadiaphysis. Reading Location: [facility] Chest X-Ray 01/30/25 16:00 IMPRESSION: No acute cardiopulmonary abnormalities are visualized. Reading Location: [facility] Pelvis X-Ray 01/30/25 16:00 IMPRESSION: Limited evaluation of left hip joint due to patient rotation. No definite evidence of displaced fracture deformity. If there is high clinical suspicion for fracture deformity, cross-sectional imaging can be obtained. Reading Location: [facility] Assessment & Plan Assessment/Plan (1) Altered mental status: (2) Closed fracture of right distal fibula: PLAN: Plan # Altered level consciousness - Suspect that this may be toxic encephalopathy, patient had an edible, 2 bottles of wine and then it is suspected she took baclofen and she is also prescribed amitriptyline, reports she still tired but is very slowly improving which would limit the theory that there is a toxic component -Aside from ankle fracture patient's lab workup and imaging with no acute process and patient was not hypercapnic, hypoxic or hypoglycemic. Difficult to wake up when she was awake she follow commands and was moving all extremities equally and extraocular movements intact, she was tracking finger and facial movements were symmetric -Will continue IV fluids -Minimize sedating medications -If patient does not continue to improve could consider MRI and/or neuro consult tomorrow - does report she snores and is concerned she has undiagnosed sleep apnea but she would not follow-up, is advised to keep patient's head of bed elevated until she is more alert -Also will need to explore if patient is on Bactrim # Right-sided ankle fracture - Ankle x-ray did show spiral mildly displaced fracture deformity of distal fibular metadiaphysis -Patient placed in splint in the ED - Will consult podiatry - Supportive care - Ultimately will need PT OT # Tachycardia-resolved - Patient had an EKG with heart rate in 130s, difficult to tell if it was A-fib, patient only given IV fluids with improvement in heart rate and and heart rate was sinus on the monitor - No history of A-fib - Suspect she may have been tachycardic due to volume depletion and pain - Will monitor in MedSurg telemetry, if any further episodes in question could consider beta-rocio and echocardiogram and discussion of anticoagulation for discharge - Do not think patient needs cardiac workup at present -will check tsh in AM #Hx Asthma -Continue home inhalers -Incentive spirometer #Hypertension - Continue home amlodipine, she is listed as being on amlodipine and diltiazem, will need to clarify - Will continue amlodipine at this time #Depression/anxiety -Continue home medications #DVT ppx: SCDs Harini Salas MD Time spent in the patient's overall evaluation, decision-making process, review of diagnostic data, adjustment of management, discussion with other providers, nursing and ancillary staff involved in patient's care documentation, 78 Minutes Charges/Coding Visit Charges Inpatient E&M: 76894 Init Hosp L3
[2025-01-30 20:57] LABS: Troponin T High Sens 4 HR 11 ng/L (<=14)
[2025-01-30] MEDS: 0.9% Normal Saline (1000mL) 1,000 ML 75 ML IV (21:55)
[2025-01-30] MEDS: 0.9% Saline Lock 10 ML Syringe IV (21:55)
[2025-01-31] MEDS: 0.9% Saline Lock 10 ML Syringe IV ×3 (00:02→14:20)
[2025-01-31 03:39] VITALS: PULSE 78
[2025-01-31 06:22] VITALS: BP 149/95; PULSE 82; RESP 16; TEMP 37.2; O2SAT 97
[2025-01-31 07:04] LABS: Hematocrit 35.9 % (37-47); Hemoglobin 12.1 g/dL (12.0-15.0); Immature Granulocytes Count 0.020 X10^3/uL (0.0-0.0); Mean Corp Hgb Conc 33.7 g/dL (32-36); Mean Corpuscular Volume 94.0 fL (81-99); Mean Platelet Vol. 10.2 fl (6.2-12.0); NRBC Flagged by Analyzer 0 % (0-5); Platelet Count 231 K/mm3 (150-450); RBC Distribution Width CV 12.4 % (11.6-14.6); RBC Distribution Width SD 42.8 fl (35.1-43.9); Red Blood Count 3.82 M/mm3 (4.2-5.4); White Blood Count 9.3 K/mm3 (4.4-11.0)
[2025-01-31] MEDS: Albuterol 2.5 MG/3 ML VIAL.NEB. INHALATION (07:31)
[2025-01-31] MEDS: Budesonide Respules 0.5 MG/2 ML AMPUL.NEB. INHALATION (07:31)
[2025-01-31 07:34] VITALS: PULSE 79; RESP 16
[2025-01-31 07:55] LABS: Anion Gap 15 (5-15); BUN 17 mg/dL (4-19); BUN/Creat Ratio 29.3 RATIO (10-20); Calcium,Total 8.9 mg/dL (7.6-11.0); Carbon Dioxide 22.2 mmol/L (21.0-32.0); Chloride 106 mmol/L (98-108); Estimated Creatinine Clearance 69.89 ml/min (50-250); Glucose 89 mg/dL (70-99); Potassium 3.5 mmol/L (3.3-5.1)
[2025-01-31 08:08] VITALS: BP 153/91; PULSE 79; RESP 18; TEMP 37.2; O2SAT 96
[2025-01-31] MEDS: Smz/Tmp Ds Tablet 1 TABLET PO ×2 (08:24→16:14)
[2025-01-31 09:19] VITALS: PULSE 71
--- NOTE | 2025-01-31 09:25 | CASEMGMT ---
RN CM Face to Face with patient for initial transition planning/care coordination assessment. RN CM introduced self and role at [facility]. Patient lying in bed, alert and oriented. Patient willing to participate in assessment and is able to answer all questions appropriately. Care providers, pharmacy, and demographics verified. Strata: 1 PCP: Patient has PCP in [place], Dr. Mancia Specialists: none Preferred Pharmacy: [facility] Insurance: [employer] [facility] Prescription Benefit: yes Living Will/HPOA: none LNOK: Living Arrangements: Patient lives with in [place], was visiting brother in [place] and staying in his single story home with 1 step. Patient states she was independent prior to hospitalization Transportation: DME/HHC: Patient denies DME. Discuss possible walker at discharge, prefers [employer], Green sheet placed on chart if needed. Patient states she drank 2 bottles of wine and took an edible. Patient states it was been a month since she last drank but was drinking 1 bottle a day of wine. Patient denies resource for alcohol cessation and states she will follow-up with her PCP. Patient wishes to discharge to her brother home and then travel back to [place] and follow up with PCP. Patient states she has no further needs or concerns at this time. CM to follow for discharge planning needs that may arise. Disposition Plan: Patient to discharge to brother's home and then [facility] [place] [facility] and follow-up plans in place. Deepti SALDIVAR, RN, CM
--- NOTE | 2025-01-31 10:46 | PCM.PN.HOSP ---
Subjective Subjective Altered mental status has resolved from her toxic encephalopathy Objective Data Objective Data Vital Signs: Vital Signs Temp Pulse Resp BP Pulse Ox O2 Del Method 99.0 F 71 18 153/91 H 96 Room Air 01/31/25 08:08 01/31/25 09:19 01/31/25 08:08 01/31/25 08:08 01/31/25 08:08 01/31/25 09:07 Oxygen Delivery Method Room Air Weight: 169 lb 1.513 oz Body Mass Index (BMI) 28.1 Intake & Output: Intake and Output for Last 24 Hours 01/30/25 01/31/25 02/01/25 03:59 03:59 03:59 Intake Total 1999 Output Total 2625 / 2625 225 / 225 Balance -625 / -625 -225 / -225 Lab / Micro Data 01/31/25 06:11 01/31/25 06:11 Labs: Laboratory Results - last 24 hr 01/30/25 15:23: WBC 10.3, RBC 4.40, Hgb 13.7, Hct 41.3, MCV 93.9, MCH 31.1, MCHC 33.2, RDW Std Deviation 42.6, RDW Coeff of Joaquín 12.2, Plt Count 276, MPV 10.2, Immature Gran % (Auto) 0.300, Neut % (Auto) 75.7 H, Lymph % (Auto) 16.8 L, [place] % (Auto) 6.4, Eos % (Auto) 0.3, Baso % (Auto) 0.5, Absolute Neuts (auto) 7.8 H, Absolute Lymphs (auto) 1.72, Nucleated RBC % 0, Sodium 147 H, Potassium 3.7, Chloride 106, Carbon Dioxide 24.0, Anion Gap 17 H, BUN 14, Creatinine 0.56 L, Estim Creat Clear Calc 75.17, Est GFR (MDRD) Non-Af 100, BUN/Creatinine Ratio 23.9 H, Glucose 125 H, Calcium 10.3, Total Bilirubin 0.32, AST 28, ALT 27, Alkaline Phosphatase 68, Total Protein 8.1, Albumin 5.2 H, Globulin 2.9, Albumin/Globulin Ratio 1.8, Ethyl Alcohol < 10.1 01/30/25 15:39: POC Glucose 118 H 01/30/25 16:35: Urine Color Yellow, Urine Clarity Clear, Urine pH 6.5, Ur Specific [place] 1.015, Urine Protein 15 H, Urine Glucose (UA) Normal, Urine Ketones Negative, Urine Occult Blood Negative, Urine Nitrite Negative, Urine Bilirubin Negative, Urine Urobilinogen Normal, Ur Leukocyte Esterase Negative, Urine RBC 0 SEEN, Urine WBC 0 SEEN, Ur Squamous Epith Cells 0 SEEN, Urine Bacteria 0 SEEN, Urine Mucus 0 SEEN, Urine Opiates Screen NEGATIVE, U Buprenorphine Qual NEGATIVE, Ur Oxycodone Screen NEGATIVE, Urine Methadone Screen NEGATIVE, Urine Fentanyl Screen NEGATIVE, Ur Barbiturates Screen NEGATIVE, Ur Phencyclidine Scrn NEGATIVE, Ur Amphetamines Screen NEGATIVE, U Benzodiazepines Scrn NEGATIVE, Urine Cocaine Screen NEGATIVE, U Cannabinoids Screen PRESUMPTIVE POSITIVE 01/30/25 16:43: Troponin T High Sens < 6 01/30/25 17:55: Troponin T Hi Sens 2 Hr 8 01/30/25 19:54: Troponin T Hi Sens 4Hr 11 01/31/25 06:11: WBC 9.3, RBC 3.82 L, Hgb 12.1, Hct 35.9 L, MCV 94.0, MCH 31.7, MCHC 33.7, RDW Std Deviation 42.8, RDW Coeff of Joaquín 12.4, Plt Count 231, MPV 10.2, Immature Gran % (Auto) 0.200, Neut % (Auto) 71.6 H, Lymph % (Auto) 18.6 L, [place] % (Auto) 9.1, Eos % (Auto) 0.2, Baso % (Auto) 0.3, Absolute Neuts (auto) 6.7, Absolute Lymphs (auto) 1.74, Nucleated RBC % 0, Sodium 143, Potassium 3.5, Chloride 106, Carbon Dioxide 22.2, Anion Gap 15, BUN 17, Creatinine 0.57 L, Estim Creat Clear Calc 69.89, Est GFR (MDRD) Non-Af 100, BUN/Creatinine Ratio 29.3 H, Glucose 89, Calcium 8.9, TSH 2.160 ABG Data ABG results: ABG 01/30/25 15:44 Specimen Type ART Sample Site L Radial pH 7.44 Bicarbonate Actual 28.3 H Total CO2 30 Base Excess 4 H O2 Saturation 97 O2 % 21.0 ABG pCO2 41.4 ABG pO2 86 Dc Test Positive O2 Delivery Device Room Air Vent Mode Not entered Radiography Diagnostic Testing: Radiology Impression Brain CT 01/30/25 15:19 IMPRESSION: 1. No acute intracranial abnormality. 2. Mild-moderate volume loss and chronic microangiopathic changes. 3. No acute maxillofacial fracture. Moderate left facial subcutaneous hematoma/contusional changes overlying the left zygoma. 4. No acute cervical spine fracture or traumatic malalignment. Reading Location: [facility] Cervical Spine CT 01/30/25 15:19 IMPRESSION: 1. No acute intracranial abnormality. 2. Mild-moderate volume loss and chronic microangiopathic changes. 3. No acute maxillofacial fracture. Moderate left facial subcutaneous hematoma/contusional changes overlying the left zygoma. 4. No acute cervical spine fracture or traumatic malalignment. Reading Location: [facility] Facial/Sinus 01/30/25 15:19 IMPRESSION: 1. No acute intracranial abnormality. 2. Mild-moderate volume loss and chronic microangiopathic changes. 3. No acute maxillofacial fracture. Moderate left facial subcutaneous hematoma/contusional changes overlying the left zygoma. 4. No acute cervical spine fracture or traumatic malalignment. Reading Location: [facility] Ankle X-Ray 01/30/25 16:00 IMPRESSION: Spiral mildly displaced fracture deformity of distal fibular metadiaphysis. Reading Location: [facility] [address] Chest X-Ray 01/30/25 16:00 IMPRESSION: No acute cardiopulmonary abnormalities are visualized. Reading Location: [id number] Pelvis X-Ray 01/30/25 16:00 IMPRESSION: Limited evaluation of left hip joint due to patient rotation. No definite evidence of displaced fracture deformity. If there is high clinical suspicion for fracture deformity, cross-sectional imaging can be obtained. Reading Location: [id number] Abdomen/Pelvis CT 01/30/25 18:30 IMPRESSION: 1. No acute findings in the abdomen or pelvis. 2. Mild diffuse hepatic steatosis. 3. Calcified uterine fibroid. Reading Location: [facility] Physical Exam Narrative General: Alert, Oriented x3, Cooperative, No apparent distress HEENT: Atraumatic, PERRLA, EOMI, Normocephalic, left facial ecchymosis no eye pain with movement Oral: Moist Mucosa Neck: Supple, No JVD Lungs: Diminished, Normal air movement, No rhonchi, No wheeze, No rales Cardiovascular: Regular rate, Regular Rhythm, Normal S1, Normal S2, No murmurs Abdomen: Soft, Non Tender, Non-Distended, No Hepato-splenomegaly Extremities: No edema, Capillary Refill Less than 3 Seconds Skin: No rashes, No breakdown Musculoskeletal: Right lower extremity is wrapped awaiting podiatry evaluation Neurological: No focal neurological deficits, Motor Exam 5/5 strength throughout, Sensory exam intact to light touch and pain Psych/Mental Status: Normal Affect, Appropriate Assessment & Plan Assessment/Plan (1) Altered mental status: (2) Closed fracture of right distal fibula: PLAN: Plan 1. Acute altered mental status secondary to toxic encephalopathy ? She drank 2 bottles of wine as well as taken baclofen, amitriptyline and an edible ? Altered mental status is resolved 2. Right-sided ankle fracture - Ankle x-ray did show spiral mildly displaced fracture deformity of distal fibular metadiaphysis -Patient placed in splint in the ED - Will consult podiatry - Pain management 3. Asthma -Continue home inhalers -Incentive spirometer 4. Essential hypertension - Continue home amlodipine she states she also takes Cardizem. Unclear as to why she is on 2 calcium channel blockers however she is from [place] ?Will monitor make adjustments as necessary 5. Depression/anxiety -Continue home medications ? Stable DVT: SCDs Charges/Coding Visit Charges Inpatient E&M: 13008 Subs Hosp L2
[2025-01-31] MEDS: 0.9% Normal Saline (1000mL) 1,000 ML 75 ML IV (11:24)
--- NOTE | 2025-01-31 11:31 | CON.PCM_ITS ---
Assessment & Plan Assessment/Plan (1) Closed fracture of right distal fibula: PLAN: Plan Evaluation performed. Reviewed diagnostic data. Reviewed right ankle xrays from ER. Discussed with patient. There is noted distal fibular fracture of the lateral malleolus with some mild displacement. Discussed nonsurgical vs surgical options. A CT scan of the ankle was ordered for further evaluation - reviewed - formal read pending but appears overall there is no significant displacement. Will proceed with nonsurgical management at this point as patient is from [place] and she would like to return there. No weightbearing right foot, keep foot elevated and keep below knee fiberglass splint clean, dry and intact. Patient's ordered a knee walker/scooter for her to use to stay off of her right foot. Reviewed mechanical DVT prophylaxis to help prevent DVT, discussed possible DVT chemoprophylaxis with hospital medicine given patient has long car ride home. She relates she would like to go back to [place] this week. She relates she [facility] [place], checked and they have foot and ankle specialists - advised her to follow up there within 1 week. Her was present for this discussion, they relate they have no problem doing this. HPI Consult Data Date of Consult: 01/31/25 HPI Narrative Reason for Consultation: Right ankle fracture HPI Narrative: AURORA GARCIA, is a 69 F who was admitted due to altered mental status from drinking to much wine and having an edible on . She had a fall late /early Sunday and injured right ankle. She presented to ER. Xrays show fracture of the lateral malleolus with mild displacement. She was placed in a below knee splint. She relates she has on and off pain to the right ankle - points to the lateral ankle but relates she also sometimes gets pain to the medial ankle. She is resting in bed with splint clean, dry and intact with foot/ankle elevated on pillows. Her altered mental status has resolved. She is here visiting family, she is from [place]. Her is present in room sitting bedside. [facility] Medical History Alcohol abuse Depression Anxiety Fibromyalgia Hypertension Asthma Home Medications ?Medication ?Instructions ?Recorded ?Last Taken ?Type albuterol sulfate 2.5 mg/3 mL 2.5 mg inhalation Q4H AZ N PRN 01/30/25 Unknown History (0.083 %) solution for nebulization wheezing albuterol sulfate 90 mcg/actuation 1 puff inhalation Q 4H PRN PRN 01/30/25 Unknown History aerosol inhaler asthma amitriptyline 10 mg tablet 10 mg PO TID 01/30/2501/29 History amlodipine 10 mg tablet 10 mg PO DAILY 01/30/2501/16 History atorvastatin 40 mg tablet 40 mg PO DAILY 01/30/2501/16 History diltiazem HCl 240 mg capsule,24 240 mg PO DAILY heart 01/30/25 01/29/25 History hr,extended release (Tiadylt ER) fluticasone 250 mcg-salmeterol 50 1 inh inhalation BID 01/30/25 Unknown History mcg/dose blistr powdr for inhalation (Advair Diskus) sertraline 100 mg tablet 100 mg PO DAILY 01/30/25 History solifenacin 5 mg tablet 5 mg PO DAILY 01/30/2501/29 History sulfamethoxazole 800 1 tab PO BID atb 01/30/25 Un known History mg-trimethoprim 160 mg tablet baclofen 20 mg tablet 10 mg (1/2 x 20 mg) PO TID s pasm 01/31/25 Unknown Rx #1 TAB hydrocodone-acetaminophen 5-325mg 1 tab PO Q8H PRN octavio n 3 days #10 01/31/25 Unknown Rx 5mg-325mg tabs rivaroxaban 10 mg tablet (Xarelto) 10 mg PO DAILY #10 tabs 01/31/25 Unknown Rx Allergy/AdvReac Type Severity Reaction Status Date / Time nitrofurantoin (From Allergy Hives Verified 01/30/25 18:20 Macrobid) ipratropium (From Atrovent) AdvReac tachycardia Verified 01/30/25 18:20 Surgical History Hx of appendectomy Hx of knee surgery Hx of foot surgery Social History Smoking Status: Never smoker Physical Exam Const alert, oriented x3 and no apparent distress Constitutional Narrative: Right ankle splinted with below knee splint which is clean, dry and intact. Sensation is intact to toes right foot, she is able to dorsiflex and plantarflex toes. Color normal toes right foot. CFT < 2 seconds to all toes on her right foot with no evidence of ischemia. Left foot and ankle with no ecchymosis, no erythema, no edema, no tissue breakdown, sensation is intact left foot with no evidence of acute injury. Lab / Micro Data 01/31/25 06:11 01/31/25 06:11 Labs: Laboratory Results - last 24 hr 01/30/25 15:23: WBC 10.3, RBC 4.40, Hgb 13.7, Hct 41.3, MCV 93.9, MCH 31.1, MCHC 33.2, RDW Std Deviation 42.6, RDW Coeff of Joaquín 12.2, Plt Count 276, MPV 10.2, Immature Gran % (Auto) 0.300, Neut % (Auto) 75.7 H, Lymph % (Auto) 16.8 L, Gordon % (Auto) 6.4, Eos % (Auto) 0.3, Baso % (Auto) 0.5, Absolute Neuts (auto) 7.8 H, Absolute Lymphs (auto) 1.72, Nucleated RBC % 0, Sodium 147 H, Potassium 3.7, Chloride 106, Carbon Dioxide 24.0, Anion Gap 17 H, BUN 14, Creatinine 0.56 L, Estim Creat Clear Calc 75.17, Est GFR (MDRD) Non-Af 100, BUN/Creatinine Ratio 23.9 H, Glucose 125 H, Calcium 10.3, Total Bilirubin 0.32, AST 28, ALT 27, Alkaline Phosphatase 68, Total Protein 8.1, Albumin 5.2 H, Globulin 2.9, Albumin/Globulin Ratio 1.8, Ethyl Alcohol < 10.1 01/30/25 15:39: POC Glucose 118 H 01/30/25 16:35: Urine Color Yellow, Urine Clarity Clear, Urine pH 6.5, Ur Specific [place] 1.015, Urine Protein 15 H, Urine Glucose (UA) Normal, Urine Ketones Negative, Urine Occult Blood Negative, Urine Nitrite Negative, Urine Bilirubin Negative, Urine Urobilinogen Normal, Ur Leukocyte Esterase Negative, Urine RBC 0 SEEN, Urine WBC 0 SEEN, Ur Squamous Epith Cells 0 SEEN, Urine Bacteria 0 SEEN, Urine Mucus 0 SEEN, Urine Opiates Screen NEGATIVE, U Buprenorphine Qual NEGATIVE, Ur Oxycodone Screen NEGATIVE, Urine Methadone Screen NEGATIVE, Urine Fentanyl Screen NEGATIVE, Ur Barbiturates Screen NEGATIVE, Ur Phencyclidine Scrn NEGATIVE, Ur Amphetamines Screen NEGATIVE, U Benzodiazepines Scrn NEGATIVE, Urine Cocaine Screen NEGATIVE, U Cannabinoids Screen PRESUMPTIVE POSITIVE 01/30/25 16:43: Troponin T High Sens < 6 01/30/25 17:55: Troponin T Hi Sens 2 Hr 8 01/30/25 19:54: Troponin T Hi Sens 4Hr 11 01/31/25 06:11: WBC 9.3, RBC 3.82 L, Hgb 12.1, Hct 35.9 L, MCV 94.0, MCH 31.7, MCHC 33.7, RDW Std Deviation 42.8, RDW Coeff of Joaquín 12.4, Plt Count 231, MPV 10.2, Immature Gran % (Auto) 0.200, Neut % (Auto) 71.6 H, Lymph % (Auto) 18.6 L, Gordon % (Auto) 9.1, Eos % (Auto) 0.2, Baso % (Auto) 0.3, Absolute Neuts (auto) 6.7, Absolute Lymphs (auto) 1.74, Nucleated RBC % 0, Sodium 143, Potassium 3.5, Chloride 106, Carbon Dioxide 22.2, Anion Gap 15, BUN 17, Creatinine 0.57 L, Estim Creat Clear Calc 69.89, Est GFR (MDRD) Non-Af 100, BUN/Creatinine Ratio 29.3 H, Glucose 89, Calcium 8.9, TSH 2.160 ABG Data ABG results: ABG 01/30/25 15:44 Specimen Type ART Sample Site L Radial pH 7.44 Bicarbonate Actual 28.3 H Total CO2 30 Base Excess 4 H O2 Saturation 97 O2 % 21.0 ABG pCO2 41.4 ABG pO2 86 Dc Test Positive O2 Delivery Device Room Air Vent Mode Not entered Imaging Radiology Impression Brain CT 01/30/25 15:19 IMPRESSION: 1. No acute intracranial abnormality. 2. Mild-moderate volume loss and chronic microangiopathic changes. 3. No acute maxillofacial fracture. Moderate left facial subcutaneous hematoma/contusional changes overlying the left zygoma. 4. No acute cervical spine fracture or traumatic malalignment. Reading Location: [id number] Cervical Spine CT 01/30/25 15:19 IMPRESSION: 1. No acute intracranial abnormality. 2. Mild-moderate volume loss and chronic microangiopathic changes. 3. No acute maxillofacial fracture. Moderate left facial subcutaneous hematoma/contusional changes overlying the left zygoma. 4. No acute cervical spine fracture or traumatic malalignment. Reading Location: [facility] Facial/Sinus 01/30/25 15:19 IMPRESSION: 1. No acute intracranial abnormality. 2. Mild-moderate volume loss and chronic microangiopathic changes. 3. No acute maxillofacial fracture. Moderate left facial subcutaneous hematoma/contusional changes overlying the left zygoma. 4. No acute cervical spine fracture or traumatic malalignment. Reading Location: [facility] Ankle X-Ray 01/30/25 16:00 IMPRESSION: Spiral mildly displaced fracture deformity of distal fibular metadiaphysis. Reading Location: [facility] Chest X-Ray 01/30/25 16:00 IMPRESSION: No acute cardiopulmonary abnormalities are visualized. Reading Location: [facility] Pelvis X-Ray 01/30/25 16:00 IMPRESSION: Limited evaluation of left hip joint due to patient rotation. No definite evidence of displaced fracture deformity. If there is high clinical suspicion for fracture deformity, cross-sectional imaging can be obtained. Reading Location: [facility] Abdomen/Pelvis CT 01/30/25 18:30 IMPRESSION: 1. No acute findings in the abdomen or pelvis. 2. Mild diffuse hepatic steatosis. 3. Calcified uterine fibroid. [facility]
--- NOTE | 2025-01-31 13:47 | CT_ITS ---
PROCEDURE: EXTREMITY LOWER WITHOUT CONTRA 01/31/2025 REASON FOR EXAM: ANKLE FRACTURE TECHNIQUE: EXTREMITY LOWER WITHOUT CONTRA Coronal and Sagittal reconstruction series were provided. CONTRAST: VOLUME: mL One or more dose reduction techniques were used (e.g., Automated exposure control, adjustment of the mA and/or kV according to patient size, use of iterative reconstruction technique). FINDINGS: See impression CT/Extremity Lower without Contra IMPRESSION: Acute minimally displaced oblique fracture of the distal fibula extending into the distal tibiofibular joint. Small acute avulsion fracture along the course of the anterior syndesmotic ligament measuri ng 7 mm. No additional fractures or significant malalignment. Talar dome is intact. 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 Mil d degenerative changes of the midfoot. Marked lateral ankle soft tissue swelling. [facility]
--- NOTE | 2025-01-31 13:57 | PCM.DC ---
Discharge Instructions DC O2, CPAP, BIPAP needs Home O2 Discharge instructions: No Dressing / Incision Discharge Activity: Return to Normal Activity Weight Bearing Status: No weight bearing (Right leg) Dressing / Incision Call your doctor if you observe: Fever of 101 or Higher, Shortness of breath, Dizziness, Fainting spells, Swelling in the ankles, Chest pain and Increased palpitations (irregular heartbeat) Follow Up Care Test Results: Test results from this visit will be discussed in further detail at your follow-up appointment, if applicable. Discharge Plan Admission Admit Date/Time: 01/30/25 20:13 Attending Provider: Kush Muller Primary Care Provider: Care Physician,No Primary Consulting Providers: Harini Salas; Baldo Chavez Instructions Patient Instructions: ED Ankle Fracture, ED Ankle Fracture, Distal Fibula Additional Instructions / Restrictions: Follow-up with your primary care doctor next week in [place]. Discharge Orders/Prescriptions Prescriptions: New Xarelto 10 mg tablet 10 mg PO DAILY Qty: 10 0RF hydrocodone-acetaminophen 5-325 mg tablet 1 tab PO Q8H PRN (Reason: pain) 3 Days Qty: 10 0RF Continued atorvastatin 40 mg tablet 40 mg PO DAILY amlodipine 10 mg tablet 10 mg PO DAILY fluticasone propion-salmeterol [Advair Diskus] 250-50 mcg/dose blister with device 1 inh inhalation BID sertraline 100 mg tablet 100 mg PO DAILY diltiazem HCl [Tiadylt ER] 240 mg capsule,extended release 24 hr 240 mg PO DAILY albuterol sulfate 90 mcg/actuation HFA aerosol inhaler 1 puff INHALATION Q4H PRN PRN (Reason: asthma) solifenacin 5 mg tablet 5 mg PO DAILY albuterol sulfate 2.5 mg /3 mL (0.083 %) solution for nebulization 2.5 mg inhalation Q4H PRN PRN (Reason: wheezing) amitriptyline 10 mg tablet 10 mg PO TID sulfamethoxazole-trimethoprim 800-160 mg tablet 1 tab PO BID Changed baclofen 20 mg tablet 10 mg PO TID Qty: 1 0RF Referrals / Follow Up: Care Physician,No Primary [Primary Care Provider] - Disposition Disposition (needs filled in before D/C Order can be placed): Home, Self Care
--- NOTE | 2025-01-31 14:37 | PCM.DC.SUM ---
Providers Date of Admission: 01/30/25 Primary Care Physician: No Primary Care Phys Consultations 01/30/25 21:32 Consult: Podiatry Routine Consulting Provider: Baldo Chavez Reason for Consult: Aspiral mildly displaced fracture deformity of distal fib metadiaphysis EMERGENT Consult: No MD Notified: Yes Date Notified: 01/31/25 Time Notified: 07:27 Method of Notification: Text Reason For Visit: ALTERED MENTAL STATUS, SUSPECT TOXIC Diagnosis Discharge Diagnosis (1) Closed fracture of right distal fibula: Status: Acute Code(s): S82.831A - Other fracture of upper and lower end of right fibula, initial encounter for closed fracture Medications at Discharge Home Medications albuterol sulfate 2.5 mg/3 mL (0.083 %) solution for nebulization 2.5 mg inhalation Q4H PRN PRN wheezing 01/30/25 albuterol sulfate 90 mcg/actuation aerosol inhaler 1 puff inhalation Q4H PRN PRN asthma 01/30/25 amitriptyline 10 mg tablet 10 mg PO TID 01/30/25 amlodipine 10 mg tablet 10 mg PO DAILY 01/30/25 atorvastatin 40 mg tablet 40 mg PO DAILY 01/30/25 diltiazem HCl 240 mg capsule,24 hr,extended release (Tiadylt ER) 240 mg PO DAILY heart 01/30/25 fluticasone 250 mcg-salmeterol 50 mcg/dose blistr powdr for inhalation (Advair Diskus) 1 inh inhalation BID 01/30/25 sertraline 100 mg tablet 100 mg PO DAILY 01/30/25 solifenacin 5 mg tablet 5 mg PO DAILY 01/30/25 sulfamethoxazole 800 mg-trimethoprim 160 mg tablet 1 tab PO BID atb 01/30/25 baclofen 20 mg tablet 10 mg (1/2 x 20 mg) PO TID spasm #1 TAB 01/31/25 hydrocodone-acetaminophen 5-325mg 5mg-325mg 1 tab PO Q8H PRN pain 3 days #10 tabs 01/31/25 rivaroxaban 10 mg tablet (Xarelto) 10 mg PO DAILY #10 tabs 01/31/25 Hospital Course Operations None Procedures None Summary of Care Provided Minutes Spent on Discharge: 36 Hospital Course: Per HPI: AURORA GARCIA, is [id number] female with a history of chronic back pain, fibromyalgia, hypertension, asthma, frequent alcohol use presented to [facility] ED 01/30/2025 due to altered level of consciousness. Reportedly had 2 bottles of wine last night, went to bed but was woken up because patient's brother found her sitting on the step with signs of a facial injury and right ankle pain, patient was helped to bed and then when patient's woke up this morning he tried to wake her up but she was minimally interactive prompting them to bring her to the ED. In the ED temp 97.6, heart rate initially 1 40-1 50s with a blood pressure of 135/102, respiratory rate 17 and pulse ox 97% on room air. CBC with white blood cell count 10.3 and hemoglobin 13.7, ABG with a bicarb of 28.3 otherwise within normal limits, glucose 118. Sodium 147 with a normal bicarb on BMP and reported gap of 17, BUN of 14 and a creatinine of 0.56 liver function normal. UDS positive for cannabinoids, alcohol level negative. UA not suggestive of infection. Troponin within normal limits. Patient had almendarez scans due to concern for her continued decreased level of consciousness. CT brain/cervical spine/facial sinus with moderate left facial subcutaneous hematoma but no acute intracranial process or cervical spine malalignment. Chest x-ray and hip and pelvis x-ray no acute process. Ankle x-ray did show spiral mildly displaced fracture deformity of distal fibular metadiaphysis. This was placed in a splint in the ED. Patient was able to be aroused with sternal rub but would ultimately go back to sleep. Given she was still not back to her baseline hospitalist contacted for admission. Evaluated patient at bedside, history obtained most entirely from . He reports that they were living in [place] and moved to [place] at the beginning of January, yesterday they drove from [place] to [place] 7 and half hours to stay with her brother. Patient was drinking before went to bed and he reports after he went to bed she drank a whole second bottle of wine. Reportedly they are trying to get healthy so she had not drank in over a week before that and aside from that 1 day had not drank for at least 2 more weeks. He does suspect that she had used an edible sometime yesterday. He also notes that he was woken up because she fell but he was able to get her to bed, he is not sure if she took any of the baclofen that she had. This a.m. she was difficult to arouse which is why she is in the ED. He feels like she is progressively becoming better as she has been in the ED and that while she has been mostly asleep when she is awake she is more alert and is answering questions better but does not remember coming to [place] or where she is right now. Is able to identify her . Patient initially would not wake up on my exam however with sternal rub she then was wide-awake, she was not sure where she was or why she was there but knew who her was, she was able to follow commands and she denied presently having any pain, nausea, chest pain or shortness of breath, no headache or changes in vision. She denied any other new or acute complaints. Hospital Course: 1. Acute altered mental status secondary to toxic encephalopathy with a right distal fibular fracture?69-year-old female who is from [place] and here visiting family presents to the hospital after a fall with altered mental status. She is on multiple sedating medications including amitriptyline, baclofen, she had also drank 2 bottles of wine and had an edible. It does appear that this has completely resolved itself and she is much more alert today and back to her baseline. She does have left facial ecchymosis from where she had fallen. X-ray demonstrated a right fibular fracture old distally, and podiatry was consulted. They said that she is nonoperative and she is to be nonweightbearing on that right lower extremity. Her has bought her in the scooter. Her leg is splinted and she will follow-up with foot and ankle surgery back home and she will be leaving for [place] on Sunday. In discussion with podiatry they would like for her to be on an anticoagulant secondary to her immobility and long drive home, therefore we will do Xarelto 10 mg p.o. daily. Will also cover her for pain with [place] for 3 days. I discussed with her the possibility for discharge today and she expressed understanding of the risks and benefits of going home and would like to go home today. 2. Asthma, essential hypertension, depression, anxiety are all chronic medical conditions which complicate her care. Her home medications were continued where appropriate. Weight / BMI Weight Weight: 169 lb 1.513 oz Body Mass Index (BMI) 28.1 ABG / Lab / Microbiology Data 01/31/25 06:11 01/31/25 06:11 Laboratory: Laboratory Results - last 24 hr 01/30/25 15:23: WBC 10.3, RBC 4.40, Hgb 13.7, Hct 41.3, MCV 93.9, MCH 31.1, MCHC 33.2, RDW Std Deviation 42.6, RDW Coeff of Joaquín 12.2, Plt Count 276, MPV 10.2, Immature Gran % (Auto) 0.300, Neut % (Auto) 75.7 H, Lymph % (Auto) 16.8 L, [place] % (Auto) 6.4, Eos % (Auto) 0.3, Baso % (Auto) 0.5, Absolute Neuts (auto) 7.8 H, Absolute Lymphs (auto) 1.72, Nucleated RBC % 0, Sodium 147 H, Potassium 3.7, Chloride 106, Carbon Dioxide 24.0, Anion Gap 17 H, BUN 14, Creatinine 0.56 L, Estim Creat Clear Calc 75.17, Est GFR (MDRD) Non-Af 100, BUN/Creatinine Ratio 23.9 H, Glucose 125 H, Calcium 10.3, Total Bilirubin 0.32, AST 28, ALT 27, Alkaline Phosphatase 68, Total Protein 8.1, Albumin 5.2 H, Globulin 2.9, Albumin/Globulin Ratio 1.8, Ethyl Alcohol < 10.1 01/30/25 15:39: POC Glucose 118 H 01/30/25 16:35: Urine Color Yellow, Urine Clarity Clear, Urine pH 6.5, Ur Specific [place] 1.015, Urine Protein 15 H, Urine Glucose (UA) Normal, Urine Ketones Negative, Urine Occult Blood Negative, Urine Nitrite Negative, Urine Bilirubin Negative, Urine Urobilinogen Normal, Ur Leukocyte Esterase Negative, Urine RBC 0 SEEN, Urine WBC 0 SEEN, Ur Squamous Epith Cells 0 SEEN, Urine Bacteria 0 SEEN, Urine Mucus 0 SEEN, Urine Opiates Screen NEGATIVE, U Buprenorphine Qual NEGATIVE, Ur Oxycodone Screen NEGATIVE, Urine Methadone Screen NEGATIVE, Urine Fentanyl Screen NEGATIVE, Ur Barbiturates Screen NEGATIVE, Ur Phencyclidine Scrn NEGATIVE, Ur Amphetamines Screen NEGATIVE, U Benzodiazepines Scrn NEGATIVE, Urine Cocaine Screen NEGATIVE, U Cannabinoids Screen PRESUMPTIVE POSITIVE 01/30/25 16:43: Troponin T High Sens < 6 01/30/25 17:55: Troponin T Hi Sens 2 Hr 8 01/30/25 19:54: Troponin T Hi Sens 4Hr 11 01/31/25 06:11: WBC 9.3, RBC 3.82 L, Hgb 12.1, Hct 35.9 L, MCV 94.0, MCH 31.7, MCHC 33.7, RDW Std Deviation 42.8, RDW Coeff of Joaquín 12.4, Plt Count 231, MPV 10.2, Immature Gran % (Auto) 0.200, Neut % (Auto) 71.6 H, Lymph % (Auto) 18.6 L, [place] % (Auto) 9.1, Eos % (Auto) 0.2, Baso % (Auto) 0.3, Absolute Neuts (auto) 6.7, Absolute Lymphs (auto) 1.74, Nucleated RBC % 0, Sodium 143, Potassium 3.5, Chloride 106, Carbon Dioxide 22.2, Anion Gap 15, BUN 17, Creatinine 0.57 L, Estim Creat Clear Calc 69.89, Est GFR (MDRD) Non-Af 100, BUN/Creatinine Ratio 29.3 H, Glucose 89, Calcium 8.9, TSH 2.160 ABG: ABG 01/30/25 15:44 Specimen Type ART Sample Site L Radial pH 7.44 Bicarbonate Actual 28.3 H Total CO2 30 Base Excess 4 H O2 Saturation 97 O2 % 21.0 ABG pCO2 41.4 ABG pO2 86 Dc Test Positive O2 Delivery Device Room Air Vent Mode Not entered Radiography Diagnostic Testing: Radiology Impression Brain CT 01/30/25 15:19 IMPRESSION: 1. No acute intracranial abnormality. 2. Mild-moderate volume loss and chronic microangiopathic changes. 3. No acute maxillofacial fracture. Moderate left facial subcutaneous hematoma/contusional changes overlying the left zygoma. 4. No acute cervical spine fracture or traumatic malalignment. Reading Location: [id number] Cervical Spine CT 01/30/25 15:19 IMPRESSION: 1. No acute intracranial abnormality. 2. Mild-moderate volume loss and chronic microangiopathic changes. 3. No acute maxillofacial fracture. Moderate left facial subcutaneous hematoma/contusional changes overlying the left zygoma. 4. No acute cervical spine fracture or traumatic malalignment. Reading Location: [facility] Facial/Sinus 01/30/25 15:19 IMPRESSION: 1. No acute intracranial abnormality. 2. Mild-moderate volume loss and chronic microangiopathic changes. 3. No acute maxillofacial fracture. Moderate left facial subcutaneous hematoma/contusional changes overlying the left zygoma. 4. No acute cervical spine fracture or traumatic malalignment. Reading Location: [facility] Ankle X-Ray 01/30/25 16:00 IMPRESSION: Spiral mildly displaced fracture deformity of distal fibular metadiaphysis. Reading Location: [facility] Chest X-Ray 01/30/25 16:00 IMPRESSION: No acute cardiopulmonary abnormalities are visualized. Reading Location: [facility] Pelvis X-Ray 01/30/25 16:00 IMPRESSION: Limited evaluation of left hip joint due to patient rotation. No definite evidence of displaced fracture deformity. If there is high clinical suspicion for fracture deformity, cross-sectional imaging can be obtained. Reading Location: [facility] Abdomen/Pelvis CT 01/30/25 18:30 IMPRESSION: 1. No acute findings in the abdomen or pelvis. 2. Mild diffuse hepatic steatosis. 3. Calcified uterine fibroid. Reading [facility] D/C Instructions Weight Bearing Status: No weight bearing (Right leg) Call your doctor if you observe: Fever of 101 or Higher, Shortness of breath, Dizziness, Fainting spells, Swelling in the ankles, Chest pain and Increased palpitations (irregular heartbeat) DC O2, CPAP, BIPAP Needs Home O2 Discharge instructions: No Meaningful Use Info Meaningful Use Meaningful Use Diagnoses (Choose all that apply): None applicable Discharge Plan Admission Admit Date/Time: 01/30/25 20:13 Attending Provider: Kush Muller Primary Care Provider: Care Physician,No Primary Consulting Providers: Harini Salas; Baldo Chavez Instructions Patient Instructions: ED Ankle Fracture, ED Ankle Fracture, Distal Fibula Additional Instructions / Restrictions: Follow-up with your primary care doctor next week in [place]. Discharge Orders/Prescriptions Prescriptions: New Xarelto 10 mg tablet 10 mg PO DAILY Qty: 10 0RF hydrocodone-acetaminophen 5-325 mg tablet 1 tab PO Q8H PRN (Reason: pain) 3 Days Qty: 10 0RF Continued atorvastatin 40 mg tablet 40 mg PO DAILY amlodipine 10 mg tablet 10 mg PO DAILY fluticasone propion-salmeterol [Advair Diskus] 250-50 mcg/dose blister with device 1 inh inhalation BID sertraline 100 mg tablet 100 mg PO DAILY diltiazem HCl [Tiadylt ER] 240 mg capsule,extended release 24 hr 240 mg PO DAILY albuterol sulfate 90 mcg/actuation HFA aerosol inhaler 1 puff INHALATION Q4H PRN PRN (Reason: asthma) solifenacin 5 mg tablet 5 mg PO DAILY albuterol sulfate 2.5 mg /3 mL (0.083 %) solution for nebulization 2.5 mg inhalation Q4H PRN PRN (Reason: wheezing) amitriptyline 10 mg tablet 10 mg PO TID sulfamethoxazole-trimethoprim 800-160 mg tablet 1 tab PO BID Changed baclofen 20 mg tablet 10 mg PO TID Qty: 1 0RF Referrals / Follow Up: Care Physician,No Primary [Primary Care Provider] - Disposition Disposition (needs filled in before D/C Order can be placed): Home, Self Care Charges/Coding Visit Charges Inpatient E&M: 64552 Disch Hosp >30min
[2025-01-31 14:47] VITALS: BP 147/96; PULSE 74; RESP 18; TEMP 37.2; O2SAT 95
--- NOTE | 2025-01-31 15:47 | CASEMGMT ---
Patient has order for discharge. Therapy recommending FWW and BSC at discharge. Scripts received. FUENTES TRONCOSO provided walker from [employer] and faxed referral to [employer]. BSC script provided to patient in discharge packet. RN ABA delivered walker to patient's room and updated patient and regarding BSC script in discharge packet. Patient and had no further questions or concerns.
== END 2025-01-31 18:25 | disposition home or self-care (01) | DRG 917 ==
LOC: ED 15:56 → MS3 01-31 06:44
PROVIDERS: Physician Assistant; Admitting Provider Internal Medicine; Emergency Provider Student in an Organized Health Care Education/Training Program; Visit Provider Family Medicine
DX: T42.8X1A Poisoning by antiparkinsonism drugs and other central muscle-tone depressants, accidental (unintentional), initial encounter (principal); G92.8 Other toxic encephalopathy; F10.10 Alcohol abuse, uncomplicated; F32.A Depression, unspecified; I48.91 Unspecified atrial fibrillation; E86.9 Volume depletion, unspecified; J45.909 Unspecified asthma, uncomplicated; I10 Essential (primary) hypertension; S00.83XA Contusion of other part of head, initial encounter; M79.7 Fibromyalgia; S82.441A Displaced spiral fracture of shaft of right fibula, initial encounter for closed fracture; F41.9 Anxiety disorder, unspecified; R11.10 Vomiting, unspecified; W19.XXXA Unspecified fall, initial encounter; T51.0X1A Toxic effect of ethanol, accidental (unintentional), initial encounter; T43.011A Poisoning by tricyclic antidepressants, accidental (unintentional), initial encounter; R00.0 Tachycardia, unspecified; Z79.01 Long term (current) use of anticoagulants; Z79.51 Long term (current) use of inhaled steroids; Z79.899 Other long term (current) drug therapy
CPT/HCPCS: 29505; 36415; 36600; 51702; 70450; 70486; 71045; 72125; 72170; 73610; 73700; 74177; 80048; 80053; 80307; 81001; 82077; 82803; 82962; 84443; 84484; 85025; 93005; 94640; 97161; 97165; 99285; Q9967; A4216; J2405